=== PATIENT | male | born 1995 | race Caucasian/White ===

== ENCOUNTER → 2021-06-03 09:07 | Outpatient (CLI) | payer SELFPAY ==
--- NOTE | ~2021-06-03 | XR_ITS ---
EXAMINATION: XR shoulder LT min 2V EXAM DATE: 06/03/2021 09:46 INDICATION: Left shoulder pain. TECHNIQUE: The following left shoulder projections obtained: frontal projection with internal rotatio n, frontal projection with external rotation, frontal abduction baby arm projection. There is no lavonne or study for comparison. FINDINGS: There is about 50% inferior displacement of the acromion with respect to the distal aspect of the clavicle on all of the projections, could indicate partial ligamentous disruption of the acrom ioclavicular joint. There are no acute fractures or dislocations identified. There is no subcutaneous gas. There are no radiopaque foreign bodies. IMPRESSION: Inferior acromial subluxation could indicate acromioclavicular ligamentous injury. Reviewed, dictated and finalized at location B. IMPRESSION: Inferior acromial subluxation could indicate acromioclavicular liga mentous injury.
== END ==
PROVIDERS: Visit Provider Chiropractor
DX: M25.512 Pain in left shoulder (principal); S43.032A Inferior subluxation of left humerus, initial encounter
CPT/HCPCS: 73030

== ENCOUNTER 2022-04-06 13:27 | Inpatient (IN) | payer MEDICAID, SELFPAY ==
[2022-04-06] VITALS (13 sets, daily range): BP systolic 117–139; BP diastolic 78–101; PULSE 96–131; RESP 14–27; TEMP 36.4–36.9; O2SAT 96–100; BMI 18.1
--- NOTE | ~2022-04-06 | XR_ITS ---
EXAMINATION: XR chest 1V portable 04/06/2022 14:33 INDICATION: Weakness and dyspnea PROCEDURE: AP portable chest COMPARISON: No prior studies for comparison. FINDINGS: The lungs are clear. The cardiomediastinal silhouette is within normal limits. There are no pleural effusions. There is no pneumothorax suspected. IMPRESSION: 1: NO ACUTE CARDIOPULMONARY DISEASE. Reviewed, dictated and finalized at location A.
[2022-04-06 13:41] LABS: Glucose Point of Care 442 mg/dl (65-105)
--- NOTE | 2022-04-06 13:41 | PC.NURSE ---
blood glucose was 442 at 1340
[2022-04-06] MEDS: SODIUM CHLORIDE 0.9% IV 1,000 ML 999 ML IV CONT ×2 (13:50→14:02)
[2022-04-06 14:03] LABS: Basophils Absolute Auto 0.1 K/mm3 (0.0-0.1); Basophils Percent Auto 0.9 % (0.2-1.2); Eosinophils Percent Auto 0.1 % (0-4.4); Hematocrit 53.5 % (42.0-52.0); Hemoglobin 19.1 g/dL (14.0-18.0); Immature Granulocyte Absolute 0.08 K/mm3 (0.00-0.031); Immature Granulocyte Percent A 0.9 % (0-0.5); Lymphocytes Absolute Auto 1.18 K/mm3 (0.9-3.2); Lymphocytes Percent Auto 13.5 % (18.3-44.2); Mean Corpuscular HGB Conc 35.7 g/dl (32-36); Mean Corpuscular Hemoglobin 31.9 pg (26-34); Mean Corpuscular Volume 89.3 fl (80-100); Mean Platelet Volume 9.7 fl (7.4-10.4); Monocytes Absolute Auto 0.5 K/mm3 (0.1-0.6); Monocytes Percent Auto 5.3 % (2.6-8.5); Neutrophils Absolute Auto 6.9 K/mm3 (1.3-6.7); Neutrophils Percent Auto 79.3 % (45.5-73.1); Platelet Count Result 374 k/mm3 (150-375); Red Blood Count 5.99 M/mm3 (4.6-6.20); Red Cell Distribution Width 13.9 % (11.5-14.5); White Blood Count 8.7 K/mm3 (4.5-10.0)
--- NOTE | 2022-04-06 14:07 | ED.GENADULT ---
HPI - General Adult General Chief complaint: Recheck/Abnormal Lab/Rx Stated complaint: sob,decreased po intake Time Seen by Provider: 04/06/22 13:36 History of Present Illness HPI narrative: Patient is a 27-year-old male who presents ER with weakness and hyperglycemia. Patient reports he diagnosed himself with diabetes 5 weeks ago by purchasing [id number] test strips at [facility]. He has been trying to diet control himself. He has not seen a physician. No history of diabetes previous to this. He does not take insulin. Reports he is becoming more fatigued. He has been trying to drink lots of water but continues to remain thirsty and to urinate a lot. He has no fevers or chills or sweats. No chest pain or chest pressure. No abdominal discomfort. No family history of diabetes. Related Data Allergies Allergy/AdvReac Type Severity Reaction Status Date / Time NKDA Allergy Mild Uncoded 06/24/09 11:55 Review of Systems Review of Systems: All systems reviewed & are unremarkable except as noted in HPI and below Constitutional: Constitutional: Denies chills, Reports fatigue, Denies fever(s) and Reports weakness ENT: Denies nasal congestion and Denies sore throat Cardiovascular: Cardiovascular: Denies chest pain, Denies rapid heart rate and Denies radiating jaw, neck or arm pain Gastrointestinal: Gastrointestinal: Denies abdominal pain, Denies nausea and Denies vomiting Genitourinary: Genitourinary: Denies dysuria, Reports urinary frequency and Denies urinary incontinence Neurologic: Denies headache(s), Denies focal weakness and Denies numbness PMFSH Past Medical History Medical History (Updated 04/06/22 @ 16:33 by Stan Ruelas MD) Diabetes Surgical History Surgical History (Updated 04/06/22 @ 14:09 by Stan Ruelas MD) No history of previous surgery Social History Social History (Updated 04/06/22 @ 14:10 by Stan Ruelas MD) Smoking status: Current every day smoker Exam Narrative: GENERAL: Ill-appearing, thin, and in no acute distress. HEAD: Normocephalic, atraumatic. EYES: PERRL and EOMI. ENT: Dry mucous membranes. CHEST: Clear to auscultation. No respiratory distress. HEART: Tachycardic and regular. Normal peripheral pulses. ABDOMEN: Soft, nontender, nondistended, normal active bowel sounds. EXTREMITIES: Normal range of motion. No edema. SKIN: Warm, dry, no rash. NEURO: Alert and oriented x3. PSYCH: Normal mood and affect. Course Course Emergency Course: Admit to the ICU. Discussed with hospital service and control systems drafting officer. Patient being started on a insulin drip. Patient educated about the seriousness of the diagnosis and need for admission and education. Vital Signs Vital signs: Vital Signs Temperature 98.4 F 04/06/22 13:30 Pulse Rate 131 H 04/06/22 13:30 Respiratory Rate 24 H 04/06/22 13:30 Blood Pressure 117/78 04/06/22 13:30 Pulse Oximetry 99 04/06/22 13:30 Oxygen Delivery Room Air 04/06/22 13:30 Temperature 98.4 F 04/06/22 13:30 Pulse Rate 108 H 04/06/22 15:23 Respiratory Rate 19 04/06/22 15:23 Blood Pressure 123/96 H 04/06/22 15:23 Pulse Oximetry 99 04/06/22 15:23 Oxygen Delivery Room Air 04/06/22 13:30 Medical Decision Making Vital Signs Vital Signs: Vital Signs Temperature 98.4 F 04/06/22 13:30 Pulse Rate 131 H 04/06/22 13:30 Respiratory Rate 24 H 04/06/22 13:30 Blood Pressure 117/78 04/06/22 13:30 Pulse Oximetry 99 04/06/22 13:30 Oxygen Delivery Room Air 04/06/22 13:30 Temperature 98.4 F 04/06/22 13:30 Pulse Rate 108 H 04/06/22 15:23 Respiratory Rate 19 04/06/22 15:23 Blood Pressure 123/96 H 04/06/22 15:23 Pulse Oximetry 99 04/06/22 15:23 Oxygen Delivery Room Air 04/06/22 13:30 Lab Data Result diagrams: 04/06/22 13:52 04/06/22 13:52 Labs: Lab Results 04/06/22 04/06/22 04/06/22 Range/Units 13:37 13:51 13:52 WBC 8.7 (4.5-10
[2022-04-06 14:08] LABS: Base Excess ABG -22.3 mEq/l (+/-2.0); Carboxyhemoglobin 0.3 % THb (0-2.0); Fractional Inspired Oxygen 21 %; HCO3 ABG 5.1 mEq/l (22.0-26.0); Methemoglobin ABG 0.6 %THb (0-1.5); Oxygen Content ABG 25.6 %vol (16.0-22.0); Oxygen Saturation ABG 97.9 % (95.0-100.0); Oxyhemoglobin 97.3 % THb (90.0-100.0); PO2 ABG 138.8 mmHg (80.0-100.0); PO2 FiO2 Ratio Arterial Blood 6.61 %; Reduced Hemoglobin 1.8 %THb (0-5.0); Total Hemoglobin 18.6 g/dL (12.0-18.0)
[2022-04-06 14:10] LABS: Modified Allen's Test Pass; PCO2 ABG 16.9 mmHg (35.0-45.0); Site Drawn RIGHT RADIAL; pH ABG 7.095 (7.350-7.450)
[2022-04-06 14:11] LABS: Device ROOM AIR
[2022-04-06 14:14] LABS: Alanine Aminotransferase 19 U/L (6-50); Albumin Level 5.8 g/dL (3.5-5.1); Alkaline Phosphatase 143 U/L (38-126); Aspartate Amino Transferase 16 U/L (17-59); Bilirubin,Total 0.6 mg/dL (0.2-1.3); Blood Urea Nitrogen 11 mg/dL (9-20); Calcium 10.8 mg/dL (8.4-10.2); Carbon Dioxide < 5 mmol/L (22-30); Chloride 99 mmol/L (98-107); Estimated CRCL calculation 90 ml/min; Estimated Glomerular Filt Rate > 60; Glucose 425 mg/dL (65-110); Magnesium 1.8 mg/dL (1.6-2.3); Phosphorus 4.6 mg/dL (2.5-4.5); Potassium 4.4 mmol/L (3.4-5.0); Sodium 134 mmol/L (137-145)
[2022-04-06 14:42] LABS: SARS-CoV-2 RNA PCR Negative
[2022-04-06] MEDS: PANTOPRAZOLE SODIUM IV 40 MG VIAL IV PUSH (14:43)
[2022-04-06 14:55] LABS: Glucose Point of Care 352 mg/dl (65-105)
--- NOTE | 2022-04-06 15:00 | PM.IMHP ---
H&P: HPI History of Present Illness Date/Time: 04/06/22 15:00 Chief Complaint: Nausea, vomiting, fatigue. Narrative: This is a 27-year-old male smoker without significant medical history who presented to the ED with complaints of nausea, vomiting, and fatigue. He has lost 30 lb unintentionally over the past 4 months and about 5 weeks ago his friends encouraged him to buy a glucometer to check his glucose as they were concerned he may have diabetes as he has also had extreme thirst and frequent urination. Initially his glucose was around 350 but after switching to a plant based diet and being more mindful about his lifestyle, he has noticed that his glucose has dropped but has never gotten under 200. The last several days he has been experiencing increasing indigestion symptoms and has been taking Tums with some benefit. Today he had nausea, vomiting, and headaches and decided to come in for evaluation finally. He has not seen a physician prior to today. Glucose on arrival was 425 and his ABG showed a pH of 7.095 and a bicarb of 5.1 and he is being admitted in this setting for further treatment. At the time my evaluation he feels a bit better after receiving aggressive IV fluid rehydration and he has no specific complaints aside from thirst. Review of Systems Review of Systems: Twelve systems were reviewed. No fever, chills, or sweats. He denies cold and flu symptoms. No sick contacts. He does have a mild headache. Endorses polydipsia and polyuria. He also have nocturia and has been getting up to go the bathroom 3 or 4 times a night for the last several months. No UTI symptoms. He has not had chest pain. He does feel a bit short of breath. No hematemesis. Except as documented, all other systems were reviewed and are negative. [facility] Past Medical History Medical History (Updated 04/06/22 @ 21:57 by Wanda Christiansen PA-C) No significant past medical history Surgical History Surgical History (Updated 04/06/22 @ 14:09 by Stan Ruelas MD) No history of previous surgery Family History Family History (Updated 04/06/22 @ 21:58 by Wanda Christiansen PA-C) Father Hypertension Social History Social History (Updated 04/06/22 @ 21:59 by Wanda Christiansen PA-C) Social History: Surrogate decision maker: Patient does not designate 1 at this time, would like to think about it. Code status: Full code. Smoking packs per day: 1 Smoking cigarettes per day: 20.0 Smoking status: Current every day smoker Alcohol intake: current Alcohol use details: 1 to 2 beers, 3 nights a week. Substance use type: marijuana Living arrangements: alone Occupation/Education: unemployed Spiritual care concerns: No Meds Home Medications and Allergies Allergies Allergy/AdvReac Type Severity Reaction Status Date / Time NKDA Allergy Mild Uncoded 06/24/09 11:55 Vital Signs Vital Signs - 24 hr 04/06/22 13:30 04/06/22 13:37 04/06/22 13:38 Temperature 98.4 F Pulse Rate 131 H 130 H 129 H Respiratory Rate 24 H 24 H 27 H Blood Pressure 117/78 139/101 H Pulse Oximetry 99 98 Oxygen Delivery Room Air 04/06/22 13:45 04/06/22 13:46 04/06/22 14:00 Temperature Pulse Rate 122 H 121 H 108 H Respiratory Rate 21 H 23 H 22 H Blood Pressure 126/100 H Pulse Oximetry 96 98 100 Oxygen Delivery 04/06/22 14:15 Temperature Pulse Rate 111 H Respiratory Rate 25 H Blood Pressure Pulse Oximetry 99 Oxygen Delivery Exam Narrative: General: Mildly ill-appearing male supine in bed. Weight: 62.5 kg. BMI: 18.2. HEENT: PERRL, EOMI. Conjunctivae anicteric. Conjunctiva mildly injected. Dry lips and mucous membranes. Neck: Supple. No lymphadenopathy. Respiratory: Lungs are clear to auscultation bilaterally. Cardiovascular: Tachycardic with normal S1-S2. Gastrointestinal: Abdomen is soft, flat, nontender, and nondistended with positive bowel sounds. Skin: Warm and dry. No rash or lesions on limited exam.
[2022-04-06 15:03] LABS: Appearance Urine Clear (Clear); Bilirubin Urine 1+ (Negative); Blood Urine 1+ (Negative); Color Urine Yellow (Yellow); Glucose Urine UA 2+ mg/dL (Negative); Ketones Urine 4+ mg/dL (Negative); Leukocyte Esterase Ur Negative LEU/UL (Negative); Nitrate Urine Negative (Negative); Protein Urine 3+ mg/dL (Negative); Specific Grav Ur >= 1.030 (1.001-1.035); Urobilinogen Urine 0.2 mg/dL (<2.0)
[2022-04-06 15:14] LABS: Mucus Urine Rare /lpf; RBC Urine 0-2 /hpf (0-2); Squamous Epithelial Cell Urine Rare /hpf (Few); WBC Urine 0-3 /hpf
[2022-04-06 15:16] LABS: Add Urine Microscopic? YES
[2022-04-06] MEDS: INSULIN HUMAN REGULAR (*BKC) 100 UNITS/ML 7 UNITS IV PUSH (15:18)
[2022-04-06 15:58] LABS: Glucose Point of Care 363 mg/dl (65-105)
[2022-04-06] MEDS: INSULIN HUMAN REGULAR (*BKC) 100 UNITS in SODIUM CHLORIDE 0.9% IV 99 ML 7.3 UNITS IV CONT (16:00)
[2022-04-06] MEDS: SODIUM CHLORIDE 0.9% IV 1,000 ML 150 ML IV CONT (16:03)
--- NOTE | 2022-04-06 16:15 | PC.NURSE ---
This patient, Neo Damian, was admitted to Intensive Care Unit-1. Patient/family oriented to hospital policies and general routines including ID bracelet, bed and alarms, visiting hours, pain management, procedures, bathroom and other care routines, personal items, smoking policy, room service/diet, and visiting hours. Information on how to activate the Rapid Response Team has been discussed. Patient/Family are encouraged to report perceived risks to care and to ask questions if they do not understand what they are told or what they should do.
[2022-04-06 16:58] LABS: Glucose Point of Care 304 mg/dl (65-105)
[2022-04-06] MEDS: ONDANSETRON INJ 4 MG/2 ML VIAL IV PUSH ×2 (17:05→20:59)
[2022-04-06 18:05] LABS: Glucose Point of Care 252 mg/dl (65-105)
[2022-04-06] MEDS: KCL 20 MEQ/D5/0.45% SOD CHL 1,000 ML 150 ML IV CONT (18:56)
[2022-04-06 19:10] LABS: Glucose Point of Care 232 mg/dl (65-105)
[2022-04-06 19:29] LABS: Anion Gap 19 mmol/L (8-16); Blood Urea Nitrogen 9 mg/dL (9-20); Calcium 8.7 mg/dL (8.4-10.2); Carbon Dioxide 7 mmol/L (22-30); Chloride 106 mmol/L (98-107); Estimated CRCL calculation 136 ml/min; Estimated Glomerular Filt Rate > 60; Glucose 226 mg/dL (65-110); Potassium 3.7 mmol/L (3.4-5.0); Sodium 132 mmol/L (137-145)
[2022-04-06 21:58] LABS: Glucose Point of Care 237 mg/dl (65-105)
[2022-04-06 21:58] LABS: Glucose Point of Care 250 mg/dl (65-105)
[2022-04-06 21:58] LABS: Glucose Point of Care 239 mg/dl (65-105)
[2022-04-06 23:26] LABS: Anion Gap 11 mmol/L (8-16); Blood Urea Nitrogen 8 mg/dL (9-20); Calcium 9.1 mg/dL (8.4-10.2); Carbon Dioxide 15 mmol/L (22-30); Chloride 108 mmol/L (98-107); Estimated CRCL calculation 136 ml/min; Estimated Glomerular Filt Rate > 60; Glucose 199 mg/dL (65-110); Potassium 3.5 mmol/L (3.4-5.0); Sodium 134 mmol/L (137-145)
[2022-04-07] VITALS (8 sets, daily range): BP systolic 107–119; BP diastolic 63–85; PULSE 58–96; RESP 12–19; TEMP 36.4–36.7; O2SAT 97–100; BMI 18.8
[2022-04-07 00:27] LABS: Glucose Point of Care 179 mg/dl (65-105)
[2022-04-07 00:27] LABS: Glucose Point of Care 224 mg/dl (65-105)
[2022-04-07] MEDS: INSULIN HUMAN REGULAR (*BKC) 100 UNITS in SODIUM CHLORIDE 0.9% IV 99 ML 10.7 UNITS IV CONT (00:29)
[2022-04-07 01:04] LABS: Glucose Point of Care 145 mg/dl (65-105)
[2022-04-07] MEDS: KCL 20 MEQ/D5/0.45% SOD CHL 1,000 ML 150 ML IV CONT (02:04)
[2022-04-07 03:15] LABS: Hematocrit 42.6 % (42.0-52.0); Hemoglobin 15.4 g/dL (14.0-18.0); Mean Corpuscular HGB Conc 36.2 g/dl (32-36); Mean Corpuscular Hemoglobin 31.9 pg (26-34); Mean Corpuscular Volume 88.2 fl (80-100); Platelet Count Result 181 k/mm3 (150-375); Red Blood Count 4.83 M/mm3 (4.6-6.20); White Blood Count 4.4 K/mm3 (4.5-10.0)
[2022-04-07] MEDS: INSULIN HUMAN REGULAR (*BKC) 100 UNITS in SODIUM CHLORIDE 0.9% IV 99 ML IV CONT (03:24)
[2022-04-07 03:27] LABS: Alanine Aminotransferase 14 U/L (6-50); Albumin Level 4.3 g/dL (3.5-5.1); Alkaline Phosphatase 93 U/L (38-126); Anion Gap 9 mmol/L (8-16); Aspartate Amino Transferase 16 U/L (17-59); Bilirubin,Total 0.6 mg/dL (0.2-1.3); Blood Urea Nitrogen 8 mg/dL (9-20); Calcium 9.4 mg/dL (8.4-10.2); Carbon Dioxide 15 mmol/L (22-30); Chloride 109 mmol/L (98-107); Estimated CRCL calculation 136 ml/min; Estimated Glomerular Filt Rate > 60; Glucose 99 mg/dL (65-110); Magnesium 1.8 mg/dL (1.6-2.3); Phosphorus 2.3 mg/dL (2.5-4.5); Potassium 3.7 mmol/L (3.4-5.0); Sodium 133 mmol/L (137-145)
[2022-04-07 04:23] LABS: Thyroid Stimulating Hormone Reflex 0.764 uIU/mL (0.465-4.68)
[2022-04-07 06:00] LABS: Glucose Point of Care 126 mg/dl (65-105)
[2022-04-07 06:00] LABS: Glucose Point of Care 110 mg/dl (65-105)
[2022-04-07 06:00] LABS: Glucose Point of Care 86 mg/dl (65-105)
[2022-04-07 06:00] LABS: Glucose Point of Care 140 mg/dl (65-105)
[2022-04-07 06:00] LABS: Glucose Point of Care 139 mg/dl (65-105)
[2022-04-07 06:54] LABS: Glucose Point of Care 136 mg/dl (65-105)
[2022-04-07 08:20] LABS: Glucose Point of Care 145 mg/dl (65-105)
[2022-04-07 08:37] LABS: Anion Gap 7 mmol/L (8-16); Blood Urea Nitrogen 9 mg/dL (9-20); Calcium 9.3 mg/dL (8.4-10.2); Carbon Dioxide 18 mmol/L (22-30); Chloride 107 mmol/L (98-107); Estimated CRCL calculation 142 ml/min; Estimated Glomerular Filt Rate > 60; Glucose 108 mg/dL (65-110); Potassium 3.8 mmol/L (3.4-5.0); Sodium 132 mmol/L (137-145)
[2022-04-07] MEDS: INSULIN GLARGINE (*BKC) 100 UNITS/ML 10 UNITS SUB-Q (08:51)
[2022-04-07 09:15] LABS: Glucose Point of Care 147 mg/dl (65-105)
[2022-04-07] MEDS: LACTATED RINGERS 1,000 ML 75 ML IV CONT ×2 (09:40→23:11)
--- NOTE | 2022-04-07 09:57 | WPDCNINT ---
Assessment and Plan Assessment and plan (1) Diabetic ketoacidosis: Code(s): E11.10 - Type 2 diabetes mellitus with ketoacidosis without coma Status: Acute Assessment and Plan: Patient presented with DKA and appears to be new onset diabetes mellitus. Patient was aware of possibility of diabetes for last few months as he was checking his sugars at home and they were high. He resisted coming to ER or seeking medical attention due to lack of medical insurance. His HbA1c is 13 On presentation patient was given IVF bolus and started on infusion He was also started on Insulin infusion and Q1H glucose monitoring Serial labs were done This morning his anion gap appears to have close. He is asymptomatic I will start him on p.o. diabetic diet I will also start him on Lantus and sliding-scale insulin Workup to evaluate etiology of diabetes has been ordered Consult structural iron erector (2) Dehydration: Code(s): E86.0 - Dehydration Status: Acute Assessment and Plan: Improved with IV fluids which will be can (3) Diabetes mellitus, new onset: Code(s): E11.9 - Type 2 diabetes mellitus without complications Status: Acute Assessment and Plan: See above (4) Electrolyte abnormality: Code(s): E87.8 - Other disorders of electrolyte and fluid balance, not elsewhere classified Status: Acute Assessment and Plan: Replacement ordered for Mag phos and potassium (5) Tobacco abuse: Code(s): Z72.0 - Tobacco use Status: Acute Assessment and Plan: Patient was counseled and encouraged to quit smoking. He is willing to give it a try. Additional Plan DVT prophylaxis -SCDs Transfer out of ICU today Induction Heat Treater Consult Note Consult date: 04/07/22 Reason for consult: DKA HPI: Neo Damian is a 27 year old male male smoker without significant medical history who presented to the ED with complaints of nausea, vomiting, and fatigue for last few days. Over last few months patient has had issues with excessive thirst, polyuria, weight loss oft 30 lb. About 5 weeks ago his friends encouraged him to buy a glucometer to check his glucose as they were concerned he may have diabetes. He states that he notice high sugar count on the meter. He tried to switch to plant based diet after researching on the Internet, cut down on smoking alcohol to see if that will fix it. He states that he resisted seeking any medical care because of lack of health insurance. Over last 2 days he started having nausea vomiting feeling weak and tired In emergency room patient was diagnosed with DKA and was given IV fluid bolus and started on IV insulin infusion. This morning patient states that he is feeling much better and denies any complaint at this time. He would like to eat food. Patient denies fever, chest pain, shortness of breath, cough, nausea vomiting, abdominal pain,, diarrhea, headache or constipation. All other systems reviewed and were negative Review of Systems Review of Systems: All systems reviewed & are unremarkable except as noted in HPI and below (HPI) [facility] Past Medical History Medical History No significant past medical history Surgical History Surgical History No history of previous surgery Family History Family History (Updated 04/07/22 @ 09:58 by Jeremiah Lara MD) Father Hypertension Grandparent Diabetes mellitus Social History Social History Social History: Surrogate decision maker: Patient does not designate 1 at this time, would like to think about it. Code status: Full code. Smoking packs per day: 1 Smoking cigarettes per day: 20.0 Smoking status: Current every day smoker Alcohol intake: current Alcohol use details: 1 to 2 beers, 3 nights a week. Substance use type: marijuana Living
[2022-04-07] MEDS: POTASSIUM PHOS/SODIUM PHOS 250 MG TABLET PO (10:12)
[2022-04-07] MEDS: MAGNESIUM OXIDE 400 MG TABLET PO (10:13)
[2022-04-07 11:44] LABS: Anion Gap 12 mmol/L (8-16); Blood Urea Nitrogen 10 mg/dL (9-20); Carbon Dioxide 15 mmol/L (22-30); Chloride 102 mmol/L (98-107); Estimated CRCL calculation 142 ml/min; Estimated Glomerular Filt Rate > 60; Glucose 272 mg/dL (65-110); Potassium 3.8 mmol/L (3.4-5.0); Sodium 129 mmol/L (137-145)
[2022-04-07] MEDS: INSULIN ASPART (*BKC) 100 UNITS/ML SUB-Q ×2 (13:08→17:15)
[2022-04-07 13:14] LABS: Glucose Point of Care 334 mg/dl (65-105)
--- NOTE | 2022-04-07 15:00 | PC.NURSE ---
This patient, Neo Damian, was transferred to [[id number]] on 04/07/22 at 1500. Personal belongings sent with patient. Report given to [PABLO GUADARRAMA]. Appropriate documentation sent with patient.
[2022-04-07 16:58] LABS: Glucose Point of Care 292 mg/dl (65-105)
--- NOTE | 2022-04-07 18:03 | PM.IMPN ---
Progress Note: A&P Assessment and Plan (1) Diabetic ketoacidosis: Code(s): E11.10 - Type 2 diabetes mellitus with ketoacidosis without coma Status: Acute Assessment and Plan: Patient presented with DKA and appears to have new onset diabetes mellitus. Patient was aware of the possibility of diabetes for last few months as he was checking his sugars at home and they were readin 'high' at times. He stopped smoking, drinking alcohol and changed to a plant based diet. Glucose did improve to 200 range but still elevated. He resisted coming to ER or seeking medical attention due to lack of medical insurance. His HbA1c is 13. He had a metabolic acidosis and was diagnosed with DKA. He was given IVF bolus and started on insulin infusion. His AG closed. His symptoms resolved. He was started on a diet. He was changes to Lantus. It Operations Specialist and vending route servicer consulted. Appropriate levels drawn to determine if DM Type I. (2) Dehydration: Code(s): E86.0 - Dehydration Status: Acute Assessment and Plan: As above. Improved with IV fluids (3) Diabetes mellitus, new onset: Code(s): E11.9 - Type 2 diabetes mellitus without complications Status: Acute Assessment and Plan: As above. (4) Electrolyte abnormality: Code(s): E87.8 - Other disorders of electrolyte and fluid balance, not elsewhere classified Status: Acute Assessment and Plan: Electrolytes were monitored closely and replaced as needed. Continue to follow. (5) Tobacco abuse: Code(s): Z72.0 - Tobacco use Status: Acute Assessment and Plan: Patient congratulated on stopping smoking. Encouraged to continue to remain tobacco free. Plan DVT prophylaxis: SCDs Code status: Full Subjective Date/time seen: 04/07/22 18:03 Interval history: 27yo healthy male presents with n/v and weight loss who was found to have DKA Patient feels much better. Eating and tolerating. No further nausea or vomiting. Patient has been transferred out of the ICU earlier today. He does not have a primary care doctor. He does not have medical insurance. Exam Narrative: AF 97.8 117/73 70 15 100% ra Gen - NARD Chest - CTA bilaterally, nml RR CV - RRR S1/S2 Abd - Soft, NT/ND, Positive BS Ext - No pedal edema Psych - Nml mood and affect Skin - Warm and dry Objective Data Vital Signs Vital Signs: Vital Signs - 24 hr 04/06/22 20:00 04/06/22 20:00 04/06/22 20:00 Temperature 97.6 F Pulse Rate 104 H 104 H 104 H Respiratory Rate 14 14 Blood Pressure 123/80 Pulse Oximetry 100 100 Oxygen Delivery Room Air 04/06/22 22:00 04/06/22 22:00 04/07/22 00:00 Temperature Pulse Rate 99 99 96 Respiratory Rate 16 Blood Pressure 122/90 Pulse Oximetry 99 Oxygen Delivery 04/07/22 00:00 04/07/22 00:00 04/07/22 02:00 Temperature 97.5 F L Pulse Rate 96 96 74 Respiratory Rate 19 19 Blood Pressure 119/78 Pulse Oximetry 99 99 Oxygen Delivery Room Air 04/07/22 02:00 04/07/22 04:00 04/07/22 04:00 Temperature Pulse Rate 74 58 L 58 L Respiratory Rate 12 12 Blood Pressure 117/76 Pulse Oximetry 97 100 Oxygen Delivery Room Air 04/07/22 04:00 04/07/22 06:00 04/07/22 06:00 Temperature 97.8 F Pulse Rate 58 L 65 65 Respiratory Rate 12 14 Blood Pressure 117/76 114/85 Pulse Oximetry 100 98 Oxygen Delivery 04/07/22 08:00 04/07/22 08:00 04/07/22 08:00 Temperature 97.8 F Pulse Rate 79 70 Respiratory Rate 15 Blood Pressure 107/74 Pulse Oximetry 100 Oxygen Delivery Room Air 04/07/22 10:00 04/07/22 10:00 Temperature Pulse Rate 88 70 Respiratory Rate 15 Blood Pressure 117/73 Pulse Oximetry 100 Oxygen Delivery Intake/Output Intake/Output: Intake & Output 04/04/22 04/05/22 04/06/22 04/07/22 23:59 23:59 23:59 23:59 Intake Total 0921 0904 Output Total 537 6808 Balance 3742 -7442 Med
[2022-04-07 21:29] LABS: Glucose Point of Care 388 mg/dl (65-105)
[2022-04-07] MEDS: INSULIN ASPART (*BKC) 100 UNITS/ML 8 UNITS SUB-Q (22:22)
[2022-04-07 22:59] LABS: Anion Gap 6 mmol/L (8-16); Blood Urea Nitrogen 13 mg/dL (9-20); Calcium 8.3 mg/dL (8.4-10.2); Carbon Dioxide 22 mmol/L (22-30); Chloride 100 mmol/L (98-107); Estimated CRCL calculation 142 ml/min; Estimated Glomerular Filt Rate > 60; Glucose 411 mg/dL (65-110); Potassium 3.8 mmol/L (3.4-5.0); Sodium 128 mmol/L (137-145)
[2022-04-08 00:59] LABS: Glucose Point of Care 215 mg/dl (65-105)
[2022-04-08 03:30] LABS: Glucose Point of Care 150 mg/dl (65-105)
[2022-04-08 05:29] VITALS: BP 100/60; PULSE 65; RESP 18; TEMP 36.1; O2SAT 99
[2022-04-08 06:50] LABS: Hematocrit 36.2 % (42.0-52.0); Mean Corpuscular HGB Conc 35.9 g/dl (32-36); Mean Corpuscular Hemoglobin 32.2 pg (26-34); Mean Corpuscular Volume 89.6 fl (80-100); Mean Platelet Volume 9.8 fl (7.4-10.4); Platelet Count Result 122 k/mm3 (150-375); Red Blood Count 4.04 M/mm3 (4.6-6.20); Red Cell Distribution Width 13.9 % (11.5-14.5); White Blood Count 2.6 K/mm3 (4.5-10.0)
[2022-04-08 07:00] LABS: Alanine Aminotransferase 11 U/L (6-50); Albumin Level 3.4 g/dL (3.5-5.1); Alkaline Phosphatase 65 U/L (38-126); Anion Gap 5 mmol/L (8-16); Aspartate Amino Transferase 15 U/L (17-59); Bilirubin,Total 0.6 mg/dL (0.2-1.3); Blood Urea Nitrogen 12 mg/dL (9-20); Calcium 8.7 mg/dL (8.4-10.2); Carbon Dioxide 26 mmol/L (22-30); Chloride 104 mmol/L (98-107); Estimated CRCL calculation 167 ml/min; Estimated Glomerular Filt Rate > 60; Glucose 154 mg/dL (65-110); Sodium 135 mmol/L (137-145)
[2022-04-08 08:09] LABS: Glucose Point of Care 170 mg/dl (65-105)
[2022-04-08] MEDS: POTASSIUM CHLORIDE 20 MEQ TABLET 40 MEQ PO (08:50)
[2022-04-08 08:57] LABS: Folic Acid 6.9 ng/mL (2.76->20)
[2022-04-08 12:03] LABS: Glucose Point of Care 324 mg/dl (65-105)
[2022-04-08] MEDS: INSULIN ASPART (*BKC) 100 UNITS/ML SUB-Q (12:11)
[2022-04-08] MEDS: INSULIN ASPART MIX 70/30 100 UNITS/ML SUB-Q (12:12)
--- NOTE | 2022-04-08 13:32 | PM.DS ---
DS: Admitting Diagnosis Discharge Date 04/08/22 Admitting Diagnosis Nausea and vomiting DS: Discharge Diagnosis Discharge Diagnosis (1) Diabetic ketoacidosis: Code(s): E11.10 - Type 2 diabetes mellitus with ketoacidosis without coma Status: Acute (2) Dehydration: Code(s): E86.0 - Dehydration Status: Acute (3) Diabetes mellitus, new onset: Code(s): E11.9 - Type 2 diabetes mellitus without complications Status: Acute (4) Electrolyte abnormality: Code(s): E87.8 - Other disorders of electrolyte and fluid balance, not elsewhere classified Status: Acute (5) Tobacco abuse: Code(s): Z72.0 - Tobacco use Status: Acute (6) Pancytopenia: Code(s): D61.818 - Other pancytopenia Status: Acute DS: Summary Hospital Course Reason for hospitalization: 27yo healthy male presents with n/v and weight loss who was found to have DKA. Please see H&P for details. Hospital Course: Patient presented with nausea and vomiting and was found to have DKA from new onset diabetes mellitus. Patient was aware of the possibility of diabetes for last few months as he was checking his sugars at home and they were reading 'high' at times. He stopped smoking, drinking alcohol and changed to a plant based diet. Glucose did improve to 200 range but still elevated. He resisted coming to ER or seeking medical attention due to lack of medical insurance. His HbA1c was 13 here. He had a metabolic gap acidosis and elevated BHO. He was diagnosed with DKA. He was given IVF and started on insulin infusion. His AG closed. Electrolytes were monitored closely and replaced as needed. His symptoms resolved. He was started on a diet. He was changes to Lantus. Infantry Operations Specialist and extension educator consulted. Appropriate blood levels drawn to determine if DM Type I. Due to cost constraints, he was changed to 70/30. Patient congratulated on stopping smoking. Encouraged to continue to remain tobacco free. CBC at discharge did show leukopenia at 2600, Hgb 13 and plt count at 122K. [place] mild anemia related to IV fluids. Suspect low WBC and plt count related to metabolic acidosis. Patient overall did well and was able to be discharged home on 04/08/22. Related arrange for outpatient diabetic education a list of primary care doctors accepting new patients was provided. The patient was encouraged to set an appointment with a primary care doctor as soon as possible. Status at Discharge Cognitive/behavioral status at discharge: Stable Time Spent with Patient Time attestation: Total time spent providing and/or coordinating discharge services: 34 minutes Time spent: Greater than 30 minutes Exam Narrative: AF 97.0 100/60 65 18 99% ra Gen - NARD Chest - CTA bilaterally, nml RR CV - RRR S1/S2 Abd - Soft, NT/ND, Positive BS Ext - No pedal edema Psych - Nml mood and affect Skin - Warm and dry DS: Data Data Completed and Pending Labs on day of discharge: Labs from last 24 hours 04/08/22 04/08/22 04/08/22 11:56 07:39 05:53 WBC RBC Hgb Hct MCV MCH MCHC RDW Plt Count MPV Sodium Potassium Chloride Carbon Dioxide Anion Gap BUN Creatinine Estim Creat Clear Calc Estimated GFR Glucose POC Capillary Glucose 324 H 170 H Calcium Magnesium Total Bilirubin AST ALT Alkaline Phosphatase Total Protein Albumin Vitamin B12 903.0 Folate 6.9 04/08/22 04/08/22 04/08/22 05:53 05:53 03:27 WBC 2.6 L RBC 4.04 L Hgb 13.0 L Hct 36.2 L MCV 89.6 MCH 32.2 MCHC 35.9 RDW 13.9 Plt Count 122 L MPV 9.8 Sodium 135 L Potassium 3.0 L Chloride 104 Carbon Dioxide 26 Anion Gap 5 L BUN 12 Creatinine 0.50 L Estim Creat Clear Calc 167 Estimated GFR > 60 Glucose 154 H POC Capillary Glucose 150 H Calcium 8.7 Magnesium 2.0 Total Biliru
--- NOTE | 2022-04-08 15:38 | PC.NURSE ---
Call received from patient that discharging pharmacy would not release medication without clarification r/t insulin dosage and times. This nurse clarified with patient's pharmacy discharge medication, dosage, route, and frequency for this patient. This nurse notified patient that pharmacy is working on script and medications clarified.
[2022-04-09 20:19] LABS: Glutamic acid decarboxylase AA >250 IU/mL (<5)
[2022-04-10 11:42] LABS: C-Peptide 0.32 ng/mL (0.80-3.85)
--- NOTE | 2022-04-11 12:18 | PC.NURSE ---
0930 spoke to patient to ascertain if he had obtained a PCP yet. Stated he had not as he is trying to get insurance due to cost of 70/30 insulin. Left message with CC regarding this. Received call from floor nurse regarding patient. The Prosthetic Aides Teacher states pt needs Reli-on, generic 70/30. Spoke with Dr. Loja and he agreed with this. I spoke to patient and he is agreeable. Called into [facility] pharmacy in [place].
[2022-04-14 17:08] LABS: Zinc Transporter 8 Antibody >500 U/mL (<15)
[2022-04-21 15:16] LABS: ICA Titer Charge YES; Islet Cell Antibody Screen POSITIVE (NEGATIVE); Islet Cell Antibody Titer 80 JDF units
--- NOTE | 2022-04-24 12:24 | PC.NURSE ---
Attempted to speak with pt regarding finding a PCP. No answer to phone call.
--- NOTE | 2022-04-26 09:57 | PC.NURSE ---
Attempted to call patient to ascertain he has obtained a PCP. No answer.
== END 2022-04-08 14:08 | disposition home or self-care (01) | DRG 420 ==
LOC: ANHED 14:34 → ANHICU 16:28 → ANH3MEDSUR 04-07 15:00
PROVIDERS: Internal Medicine; Physician Assistant; Admitting Provider Internal Medicine; Emergency Provider Emergency Medicine; Visit Provider Internal Medicine
DX: E11.10 Type 2 diabetes mellitus with ketoacidosis without coma (principal); E86.0 Dehydration; Z20.822 Contact with and (suspected) exposure to COVID-19; F17.210 Nicotine dependence, cigarettes, uncomplicated; E87.8 Other disorders of electrolyte and fluid balance, not elsewhere classified; D61.818 Other pancytopenia
CPT/HCPCS: 36415; 36600; 71045; 80048; 80053; 81001; 82010; 82375; 82607; 82746; 82805; 82948; 83036; 83050; 83735; 84100; 84443; 84681; 85025; 85027; 86341; 96361; 96374; 99285; A9270; C9113; C9803; J0131; J1815; J2405; J3480; J7030; J7120; U0003; U0005